=== PATIENT | female | born 2000 | race African-American/Black ===

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

== ENCOUNTER 2019-12-29 10:37 | Emergency (ER) | payer SELFPAY ==
[~2019-12-29] VITALS: Ht 157.5 cm; Wt 61.7 kg
[~2019-12-29 10:37] MED LIST changes: +MOTRIN 600600 MG/TAB PO; +PERCOCET 325 MG1 TA2 PO; +PRENATAL 191 TAB PO; +TYLENOL 325MG325 MG PO
[2019-12-29 12:45] VITALS: BP 120/74; PULSE 84; TEMP 98.3
== END 2019-12-29 12:53 | disposition home or self-care (01) ==
LOC: COL.ER 10:37
DX: S61.512A Laceration without foreign body of left wrist, initial encounter (principal); S06.0X0A Concussion without loss of consciousness, initial encounter; W25.XXXA Contact with sharp glass, initial encounter; Y92.009 Unspecified place in unspecified non-institutional (private) residence as the place of occurrence of the external cause